=== PATIENT | female | born 1985 | race Two or more races ===

== ENCOUNTER → 2024-03-02 | Outpatient (CLI) | payer BC, SELFPAY ==
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
[2024-03-02 09:30] LABS: Misc Send Out* See Sep Rpt
[2024-03-02 10:27] LABS: Basophils % (Auto) 1 % (0-2.5); Eosinophils % (Auto) 1 % (0-10); Hemoglobin 13.6 g/dL (12.0-16.0); Immature Granulocytes % (Auto) 0 % (0-0); Lymphocytes # (Auto) 1.6 Thou/mm3 (1.0-4.8); Lymphocytes % (Auto) 39 % (10-50); Mean Corpuscular Hemoglobin 30.4 pg (25.0-35.0); Mean Corpuscular Volume 90 fL (80-100); Monocytes # (Auto) 0.2 Thou/mm3 (0.0-0.8); Monocytes % (Auto) 6 % (0-12); Neutrophils # (Auto) 2.1 Thou/mm3 (1.8-7.7); Neutrophils % (Auto) 53 % (37-80); Nucleated Red Blood Cell % 0 /100 WBC (0); Platelet Count 205 Thou/mm3 (140-440); RDW Standard Deviation 43.2 fL (36.4-46.3); Red Blood Count 4.47 Miln/mm3 (4.00-5.20)
[2024-03-02 10:52] LABS: Alanine Aminotransferase 26 U/L (10-49); Albumin/Globulin Ratio 2.2 (1.2-2.2); Alkaline Phosphatase 61 U/L (46-116); Anion Gap 8 (7-16); Aspartate Amino Transferase 23 U/L (0-34); BUN/Creatinine Ratio 18 Ratio (12-20); Bilirubin,Total 0.4 mg/dL (0.3-1.2); Blood Urea Nitrogen 14 mg/dL (9-23); C-Reactive Protein < 0.4 mg/dL (0.0-0.9); Calcium 9.6 mg/dL (8.3-10.6); Calcium (Corrected) 9.6 mg/dL (8.5-10.1); Carbon Dioxide 25.8 mMol/L (20.0-31.0); Chloride 106 mMol/L (98-107); Creatinine (Component) 0.8 mg/dL (0.6-1.3); Globulin 2.3 gm/dL (2.3-3.5); Glucose 94 mg/dL (74-106); Magnesium 2.4 mg/dL (1.6-2.6); Osmolality,Calculated 279 (275-295); Potassium 4.5 mMol/L (3.4-5.1); Sodium 140 mMol/L (136-145); Total Protein 7.3 gm/dL (5.7-8.2); eGFR > 60 See Note
[2024-03-02 11:55] LABS: Sed Rate (ESR) 10 mm/hr (0-20)
[2024-03-03 17:55] LABS: Vitamin B12 308 pg/mL (211-911)
[2024-03-04 12:13] LABS: RA Screen Negative (Negative)
[2024-03-12 06:30] LABS: ANA Screen, IFA NEGATIVE (NEGATIVE); CCP Antibody (IgG)* <16 Units; Complement Component C3* 164 mg/dL (83-193); Complement Component C4c* 33 mg/dL (15-57); DNA (ds) Antibody* <1 IU/mL; Vitamin D, 25-OH, D2 4 ng/mL; Vitamin D, 25-OH, D3 28 ng/mL; Vitamin D, 25-OH, Total 32 ng/mL (30-100)
== END | disposition home or self-care (01) ==
LOC: CDIM 08:33 → COPL 09:16
PROVIDERS: PCP Family Medicine; Referring Provider Nurse Practitioner Family; Visit Provider Radiology Diagnostic Radiology
DX: M48.02 Spinal stenosis, cervical region (principal); R76.0 Raised antibody titer; M79.7 Fibromyalgia; R53.83 Other fatigue
CPT/HCPCS: 36415; 72050; 80053; 82306; 82607; 83525; 83735; 85025; 85652; 86038; 86140; 86160; 86200; 86225; 86430

== ENCOUNTER → 2024-03-30 | Outpatient (CLI) | payer BC, SELFPAY ==
[2024-03-30 09:22] LABS: Misc Send Out* See Sep Rpt
[2024-04-06 06:24] LABS: Complement Component C3* 174 mg/dL (83-193); Complement Component C4c* 34 mg/dL (15-57)
== END | disposition home or self-care (01) ==
LOC: COPL 09:04
PROVIDERS: PCP Family Medicine; Referring Provider Allergy & Immunology; Visit Provider Allergy & Immunology
DX: L50.0 Allergic urticaria (principal); R23.4 Changes in skin texture
CPT/HCPCS: 36415; 86160

== ENCOUNTER 2024-08-29 08:36 | Outpatient (AMB) | payer BC, SELFPAY ==
[2024-08-29 08:48] VITALS: BP 122/87; PULSE 67; RESP 17; TEMP 36.5; O2SAT 98; BMI 29.8
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
== END 2024-08-29 09:23 | disposition home or self-care (01) ==
LOC: HODSOBC 08:36
PROVIDERS: PCP Family Medicine; Referring Provider Family Medicine; Supervising Provider Obstetrics & Gynecology; Visit Provider Obstetrics & Gynecology
DX: N95.1 Menopausal and female climacteric states (principal)
CPT/HCPCS: 99203; G0463

== ENCOUNTER → 2024-09-20 | Outpatient (CLI) | payer BC, SELFPAY ==
--- NOTE | 2024-09-20 13:00 | XR_ITS ---
Examination: Screening digital mammography, bilateral Computer aided detection 3-D breast Tomosynthesis, bilateral Date and time of exam: September 20, 2024 1253 hours Indication: Screening Technique: Nonmagnified MLO, CC views of the breasts to been obtained, reconstructed from 3-D Tomosynthesis images. R2 computer aided detection program utilized for evaluation of suspicious masses and/or abnormal calcifications. 3-D Tomosynthesis images obtained. Findings: Scattered areas of fibroglandular density. Benign calcifications. Intact implants. No suspicious masses Impression: BI-RADS category II: Benign Findings. Recommend 1 year follow-up mammogram.
== END | disposition home or self-care (01) ==
PROVIDERS: PCP Family Medicine; Referring Provider Obstetrics & Gynecology; Visit Provider Obstetrics & Gynecology
DX: Z12.31 Encounter for screening mammogram for malignant neoplasm of breast (principal); R92.323 Mammographic fibroglandular density, bilateral breasts; R92.1 Mammographic calcification found on diagnostic imaging of breast
CPT/HCPCS: 77063; 77067